=== PATIENT | male | born 1960 | race Caucasian/White ===

== ENCOUNTER 2020-05-25 22:58 | Inpatient (IN) | payer MEDICARE, OTHER ==
[2020-05-25] MEDS ORDERED: IPRATROPIUM-ALBUTEROL 3 ML NEB INHALATION STA (23:15)
[2020-05-25] MEDS ORDERED: DEXAMETHASONE SOD PHOSPHATE 10 MG/ML 1 ML VIAL IM STA (23:15)
[2020-05-25] MEDS ORDERED: diazePAM 5 MG TAB PO STA (23:15)
--- NOTE | 2020-05-25 23:17 | ED ---
SOB HPI - General Chief Complaint: Shortness of Breath Stated Complaint: SOB Time Seen by Provider: 05/25/20 23:00 Source: patient, EMS, RN notes reviewed, old records reviewed Mode of arrival: EMS Limitations: no limitations - History of Present Illness Initial Comments: This is a 59-year-old male to the ER for evaluation patient presents today for evaluation regards to shortness of breath patient has severe shortness of breath cough congestion known COPD, no drug abuse, patient comes from [place] where he is for crack cocaine use and alcohol abuse. Otherwise besides from COPD patient has no complaints no pain, states she's had 3 days of worsening shortness of breath. MD Complaint: shortness of breath, cough, "asthma attack", anxiety -: days(s) (3) Severity: moderate Severity scale (1-10): 6 Quality: dull Consistency: constant Improves With: nothing Worsens With: exertion Known History Of: COPD, asthma Context: recent URI, recent illness Associated Symptoms: cough, sputum production, palpitations Treatments Prior to Arrival: none - Related Data Allergies Allergy/AdvReac Type Severity Reaction Status Date / Time acetaminophen [From Tylenol] Allergy Nausea & Verified 05/25/20 23:21 Vomiting ibuprofen [From Advil] Allergy Itching Verified 05/25/20 23:21 Review of Systems ROS Statement: Those systems with pertinent positive or pertinent negative responses have been documented in the HPI. ROS Other: All systems not noted in ROS Statement are negative. Past Medical History Past Medical History: COPD History of Any Multi-Drug Resistant Organisms: None Reported Past Surgical History: Orthopedic Surgery Additional Past Surgical History / Comment(s): knee surgery-1976 Past Psychological History: Bipolar, Depression Smoking Status: Current every day smoker Past Alcohol Use History: Daily Past Drug Use History: Cocaine General Exam Limitations: no limitations General appearance: alert, anxious, in distress, cachectic Head exam: Present: atraumatic, normocephalic, normal inspection Eye exam: Present: normal appearance, PERRL, EOMI. Absent: scleral icterus, conjunctival injection, periorbital swelling ENT exam: Present: normal exam, mucous membranes moist Neck exam: Present: normal inspection. Absent: tenderness, meningismus, lymphadenopathy Respiratory exam: Present: normal lung sounds bilaterally. Absent: respiratory distress, wheezes, rales, rhonchi, stridor Cardiovascular Exam: Present: normal rhythm, tachycardia, normal heart sounds. Absent: systolic murmur, diastolic murmur, rubs, gallop, clicks GI/Abdominal exam: Present: soft, normal bowel sounds. Absent: distended, tenderness, guarding, rebound, rigid Extremities exam: Present: normal inspection, full ROM, normal capillary refill. Absent: tenderness, pedal edema, joint swelling, calf tenderness Back exam: Present: normal inspection Neurological exam: Present: alert, oriented X3, CN II-XII intact Psychiatric exam: Present: normal affect, normal mood Skin exam: Present: warm, dry, intact, normal color. Absent: rash Course Vital Signs 05/25/20 05/25/20 05/25/20 23:00 23:34 23:53 Temperature 97.3 F L Pulse Rate 101 H 96 96 Respiratory 20 Rate Blood Pressure 145/90 O2 Sat by Pulse 98 Oximetry 05/26/20 01:11 Temperature Pulse Rate 96 Respiratory 18 Rate Blood Pressure 117/71 O2 Sat by Pulse 100 Oximetry - Reevaluation(s) Reevaluation #1: 05/26/20 00:15 Medical record is reviewed Reevaluation #2: 05/26/20 01:18 Patient did provided significant distress for distress which improved with supplemental O2 and breathing treatments Reevaluation #3: 05/26/20 01:18 Patient informed results questions have been answered - Consultations Consultation #1: Spoke with sound who agree to admit patient Medical Decision Making - Lab Data Result diagrams: 05/25/20 23:03 05/25/20 23:03 Lab Results 05/25/20 05/25/20 05/25/20 Range/Units 23:03 23:03 23:03 WBC 7.1 (3.8-10.6) k/uL RBC 4.11 L (4.30-5.90) m/uL Hgb 13.5 (13.0-17.5) gm/dL Hct 40.1 (39.0-53.0) % MCV 97.4 (80.0-100.0) fL MCH 32.9 (25.0-35.0) pg MCHC 33.8 (31.0-37.0) g/dL RDW 13.8 (11.5-15.5) % Plt Count 165 (150-450) k/uL MPV 8.8 Neutrophils % 57 % Lymphocytes % 21 % Monocytes % 10 % Eosinophils % 8 % Basophils % 1 % Neutrophils # 4.0 (1.3-7.7) k/uL Lymphocytes # 1.5 (1.0-4.8) k/uL Monocytes # 0.7 (0-1.0) k/uL Eosinophils # 0.6 (0-0.7) k/uL Basophils # 0.1 (0-0.2) k/uL PT 10.4 (9.0-12.0) sec INR 1.0 (<1.2) APTT 22.2 (22.0-30.0) sec Sodium 136 L (137-145) mmol/L Potassium 5.9 H (3.5-5.1) mmol/L Chloride 102 (98-107) mmol/L Carbon Dioxide 31 H (22-30) mmol/L Anion Gap 3 mmol/L BUN 27 H (9-20) mg/dL Creatinine 0.79 (0.66-1.25) mg/dL Est GFR (CKD-EPI)AfAm >90 (>60 ml/min/1.73 sqM) Est GFR (CKD-EPI)NonAf >90 (>60 ml/min/1.73 sqM) Glucose 120 H (74-99) mg/dL Plasma Lactic Acid Julio (0.7-2.0) mmol/L Calcium 8.8 (8.4-10.2) mg/dL Magnesium 2.2 (1.6-2.3) mg/dL Total Bilirubin 0.6 (0.2-1.3) mg/dL AST 42 (17-59) U/L ALT 23 (4-49) U/L Alkaline Phosphatase 60 (38-126) U/L Lactate Dehydrogenase 778 H (313-618) U/L Troponin I (0.000-0.034) ng/mL C-Reactive Protein <5.0 (<10.0) mg/L Total Protein 6.8 (6.3-8.2) g/dL Albumin 3.6 (3.5-5.0) g/dL 05/25/20 05/25/20 Range/Units 23:03 23:03 WBC (3.8-10.6) k/uL RBC (4.30-5.90) m/uL Hgb (13.0-17.5) gm/dL Hct (39.0-53.0) % MCV (80.0-100.0) fL MCH (25.0-35.0) pg MCHC (31.0-37.0) g/dL RDW (11.5-15.5) % Plt Count (150-450) k/uL MPV Neutrophils % % Lymphocytes % % Monocytes % % Eosinophils % % Basophils % % Neutrophils # (1.3-7.7) k/uL Lymphocytes # (1.0-4.8) k/uL Monocytes # (0-1.0) k/uL Eosinophils # (0-0.7) k/uL Basophils # (0-0.2) k/uL PT (9.0-12.0) sec INR (<1.2) APTT (22.0-30.0) sec Sodium (137-145) mmol/L Potassium (3.5-5.1) mmol/L Chloride (98-107) mmol/L Carbon Dioxide (22-30) mmol/L Anion Gap mmol/L BUN (9-20) mg/dL Creatinine (0.66-1.25) mg/dL Est GFR (CKD-EPI)AfAm (>60 ml/min/1.73 sqM) Est GFR (CKD-EPI)NonAf (>60 ml/min/1.73 sqM) Glucose (74-99) mg/dL Plasma Lactic Acid Julio 0.9 (0.7-2.0) mmol/L Calcium (8.4-10.2) mg/dL Magnesium (1.6-2.3) mg/dL Total Bilirubin (0.2-1.3) mg/dL AST (17-59) U/L ALT (4-49) U/L Alkaline Phosphatase (38-126) U/L Lactate Dehydrogenase (313-618) U/L Troponin I 0.013 (0.000-0.034) ng/mL C-Reactive Protein (<10.0) mg/L Total Protein (6.3-8.2) g/dL Albumin (3.5-5.0) g/dL - EKG Data -: EKG Interpreted by Me (EKG shows NSR 98 FL 140 QRS 90 QTc 464) Critical Care Time Critical Care Time: Yes Total Critical Care Time: 31 Disposition Clinical Impression: Acute exacerbation of chronic obstructive pulmonary disease, Hypoxia Disposition: ADMITTED IP TO THIS HOSP Condition: Fair Is patient prescribed a controlled substance at d/c from ED?: No Referrals: None,Stated [Primary Care Provider] - 1-2 days
[2020-05-25] MEDS: HYDROcodone/APAP 5-325MG 1 EACH TAB PO STA ×2 (23:28→23:31)
[2020-05-25] MEDS ORDERED: SODIUM CHLORIDE 0.9% 1,000 ML IV STA ×2 (23:35)
[2020-05-25] MEDS ORDERED: SODIUM CHLORIDE 0.9% 500 ML 500 ML IV STA (23:35)
[2020-05-25] MEDS ORDERED: LORazepam 2 MG/ML INJ IV STA (23:35)
[2020-05-26] LABS: Basophils # (A) 0.1 k/uL (0-0.2); Basophils % (A) 1 %; Eosinophils # (A) 0.6 k/uL (0-0.7); Eosinophils % (A) 8 %; HCT 40.1 % (39.0-53.0); HGB 13.5 gm/dL (13.0-17.5); Lymphocytes # (A) 1.5 k/uL (1.0-4.8); Lymphocytes % (A) 21 %; MCH 32.9 pg (25.0-35.0); MCHC 33.8 g/dL (31.0-37.0); MCV 97.4 fL (80.0-100.0); Mean Platelet Volume 8.8; Monocytes # (A) 0.7 k/uL (0-1.0); Monocytes % (A) 10 %; Neutrophils % (A) 57 %; Platelet Count 165 k/uL (150-450); RBC 4.11 m/uL (4.30-5.90); RDW 13.8 % (11.5-15.5); WBC 7.1 k/uL (3.8-10.6)
--- NOTE | 2020-05-26 00:09 | XR ---
EXAM: XR Chest, 1 View CLINICAL HISTORY: ITS.REASON XR Reason: cough TECHNIQUE: Frontal view of the chest. COMPARISON: No previous studies. FINDINGS: Lungs: Mild COPD. No consolidative changes. Pleural space: No pleural effusions. No pneumothorax. Heart: Cardiomediastinal silhouette unremarkable. Mediastinum: See above. Bones/joints: Ribs are grossly unremarkable. 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 IMPRESSION: 1. Mild COPD. 2. No consolidative change.
[2020-05-26 00:11] LABS: Partial Thromboplastin Time 22.2 sec (22.0-30.0); Prothrombin Time 10.4 sec (9.0-12.0)
[2020-05-26 00:35] LABS: ALT 23 U/L (4-49); African American GFR (CKD) >90 (>60 ml/min/1.73 sqM); Anion Gap 3 mmol/L; Blood Urea Nitrogen 27 mg/dL (9-20); Calcium 8.8 mg/dL (8.4-10.2); Carbon Dioxide 31 mmol/L (22-30); Chloride 102 mmol/L (98-107); Glucose 120 mg/dL (74-99); Non-African American GFR(CKD) >90 (>60 ml/min/1.73 sqM); Sodium 136 mmol/L (137-145)
[2020-05-26 00:38] LABS: AST 42 U/L (17-59); Albumin 3.6 g/dL (3.5-5.0); Alkaline Phosphatase 60 U/L (38-126); Magnesium 2.2 mg/dL (1.6-2.3); Potassium 5.9 mmol/L (3.5-5.1); Total Bilirubin 0.6 mg/dL (0.2-1.3); Total Protein 6.8 g/dL (6.3-8.2)
[2020-05-26 00:39] LABS: C Reactive Protein <5.0 mg/L (<10.0); LDH 778 U/L (313-618)
[2020-05-26] MEDS ORDERED: IPRATROPIUM-ALBUTEROL 3 ML NEB INHALATION PRN (01:15)
[2020-05-26] MEDS ORDERED: methylPREDNISolone SOD SUCCI 125 MG/2 ML VIAL IV STA (01:15)
[2020-05-26] MEDS ORDERED: LORazepam 2 MG/ML INJ IV PRN ×2 (01:18)
[2020-05-26] MEDS ORDERED: THIAMINE 100 MG/ML 2 ML VIAL IM ONE ×2 (01:30→03:00)
[2020-05-26] MEDS ORDERED: INSULIN REGULAR 100 UNIT/ML VIAL IV ONE (01:57)
[2020-05-26] MEDS ORDERED: DEXTROSE 50% SYRINGE 50 ML IVP STA (01:57)
[2020-05-26] MEDS: LORazepam 2 MG/ML INJ IV PRN ×2 (02:32→10:27)
[2020-05-26] MEDS: SODIUM CHLORIDE 0.9% 1,000 ML IV SCH ×2 (03:03→12:50)
--- NOTE | 2020-05-26 03:43 | P.HPIM ---
History of Present Illness H&P Date: 05/26/20 Chief Complaint: coughing , SOB 59 year old male with COPD, not on home oxygen patient is currently at [facility] for alcohol and cocain abuse. patient reports 3 days of productive cough yellowish sputum, and today progressed to severe SOB, he does not use home oxygen, but his inhalers failed to give him any relief. patient denies any new onset body aches , fever, loss of smell or taste sensation , diarrhea, chest pain , nausea or vomiting, abd pain or sick contact with known cases of covid 19. he denies any hemoptysis in the ED he was found to have SOB and wheezing, he improved slightly with breathing treatment, and oxygenation improved with supplemental oxygen CXR showed COPD changes, and blood work , showed no luekocytosis , CRP wnl, but elevated LDH Review of Systems Pertinent positives as noted in HPI. All other systems were reviewed and are negative Past Medical History Past Medical History: COPD History of Any Multi-Drug Resistant Organisms: None Reported Past Surgical History: Orthopedic Surgery Additional Past Surgical History / Comment(s): knee surgery-1976 Past Psychological History: Bipolar, Depression Smoking Status: Current every day smoker Past Alcohol Use History: Daily Past Drug Use History: Cocaine - Past Family History family Family Medical History: No Reported History Medications and Allergies Allergies Allergy/AdvReac Type Severity Reaction Status Date / Time acetaminophen [From Tylenol] Allergy Nausea & Verified 05/25/20 23:21 Vomiting ibuprofen [From Advil] Allergy Itching Verified 05/25/20 23:21 Physical Exam Vitals: Vital Signs Temp Pulse Resp BP Pulse Ox 05/26/20 01:11 96 18 117/71 100 05/25/20 23:53 96 05/25/20 23:34 96 05/25/20 23:00 97.3 F L 101 H 20 145/90 98 Intake and Output 05/25/20 05/25/20 05/26/20 14:59 22:59 06:59 Other: Weight 49.895 kg Constitutional: No acute distress, conversant, pleasant, looks older than stated age, disheveled Eyes: Anicteric sclerae, moist conjunctiva, Pupils equal round reactive to light ENMT: NC/AT Oropharynx clear, no erythema, or exudates Neck: Supple, FROM, no masses, or JVD No carotid bruits No thyromegaly Lungs: decrease breath sounds throughout , with diffuse rhonchi Clear to percussion Normal respiratory effort, no accessory muscle use Cardiovascular: Heart regular in rate and rhythm, No murmurs, gallops, or rubs No peripheral edema Abdominal: Soft Nontender, no guarding, rebound or rigidity Abdomen moving with respiration Normoactive bowel sounds No hepatomegaly, No splenomegaly No palpable mass umbilical hernia , soft non tender Skin: Normal temperature, tone, texture, turgor No induration No subcutaneous nodules there erythematic rash over bilateral dorsum of forearm, patient indicated chronic and he bruises easily No ulcers Extremities: No digital cyanosis No clubbing Pedal pulses intact and symmetrical Radial pulses intact and symmetrical No calf tenderness Psychiatric: Alert and oriented to person, place Appropriate affect fair judgement Neuro Muscles Strength 4/5 in all 4 extremities Sensation to light touch grossly present throughout Cranial nerves II-XII grossly intact No focal sensory deficits Lymphatics: no palpable cervical or supraclavicular , or inguinal lymph nodes Results CBC & Chem 7: 05/25/20 23:03 05/25/20 23:03 Labs: Abnormal Lab Results - Last 24 Hours (Table) 05/25/20 05/25/20 Range/Units 23:03 23:03 RBC 4.11 L (4.30-5.90) m/uL Sodium 136 L (137-145) mmol/L Potassium 5.9 H (3.5-5.1) mmol/L Carbon Dioxide 31 H (22-30) mmol/L BUN 27 H (9-20) mg/dL Glucose 120 H (74-99) mg/dL Lactate Dehydrogenase 778 H (313-618) U/L Assessment and Plan Assessment: acute hypoxic respiratory failure acute COPD exacerbation hyperkalemia elevated LDH polysubstance abuse plan supplemental oxygen as needed breathing treatment around the clock and as needed systemic steroids Azithromycin for anti inflammatory effect mucinex for congestion insulin and D50 for hyperkalemia , close monitor of K Q4Hr patient is determined to get help with his addiction , currently at [facility] , admits to smoking cocain and alcohol abuse CODE STATUS:full code DVT prophylaxis: lovenox sc Discussed with: Patient, ER, RN Anticipated length of stay > than [address]: back to [facility] A total of 55 minutes was spent on the care of this complex patient more than 50% of the time was spent in counseling and care coordination.
[2020-05-26] MEDS: methylPREDNISolone SOD SUCCI 125 MG/2 ML VIAL IV SCH ×4 (05:35→23:19)
[2020-05-26 07:05] LABS: HCT 37.8 % (39.0-53.0); HGB 12.5 gm/dL (13.0-17.5); MCHC 33.2 g/dL (31.0-37.0); MCV 99.4 fL (80.0-100.0); Mean Platelet Volume 8.4; Platelet Count 136 k/uL (150-450); RDW 13.9 % (11.5-15.5); WBC 5.8 k/uL (3.8-10.6)
[2020-05-26] MEDS: ALBUTEROL NEBULIZED 2.5 MG/3 ML INHALATION SCH ×4 (08:03→20:16)
[2020-05-26] MEDS: guaiFENesin-DM 600/30MG 1 EACH TAB.ER.12H PO SCH ×2 (08:13→20:47)
[2020-05-26] MEDS: ENOXAPARIN 40 MG/0.4 ML SYRINGE SQ SCH (08:13)
[2020-05-26] MEDS: AZITHROMYCIN 500 MG TAB PO SCH (08:13)
[2020-05-26] MEDS: NICOTINE 21MG/24HR PATCH TRANSDERM SCH (08:14)
[2020-05-26 09:35] LABS: African American GFR (CKD) 119.7 (60.0-200.0); Anion Gap 7.1 mmol/L (4.00-12.00); BUN/Creat Ratio 32.86 Ratio (12.00-20.00); Calcium 8.3 mg/dL (8.7-10.3); Carbon Dioxide 25.9 mmol/L (21.6-31.8); Non-African American GFR(CKD) 103.3 (60.0-200.0)
[2020-05-26 11:42] VITALS: BMI 17.7
--- NOTE | 2020-05-26 13:26 | P.PN ---
Subjective Progress Note Date: 05/26/20 Patient was seen and evaluated by me today. Her shortness of breath is slightly better compared to yesterday. He is still having significant rhonchi. No acute events overnight reported to me by nursing staff. Objective - Vital Signs Vital signs: Vital Signs Temp 98.6 F 05/26/20 08:00 Pulse 92 05/26/20 11:31 Resp 20 05/26/20 11:00 BP 142/66 05/26/20 08:00 Pulse Ox 98 05/26/20 08:00 Intake & Output 05/25/20 05/26/20 05/26/20 18:59 06:59 18:59 Intake Total 840 Balance 840 Weight 49.895 kg 49.895 kg Intake: Intake, IV Titration 520 Amount Sodium Chloride 0.9% 1, 520 000 ml @ 130 mls/hr IV . Q7H42M STA Rx#:[id number] Oral 320 Other: # Voids 1 - Exam General: The patient is awake and alert, in no distress Eye: there is normal conjunctiva bilaterally. Neck: The neck is supple, there is no JVD. Cardiovascular: Normal S1-S2, no S3-S4, no murmurs. Respiratory: Lungs with diffuse rhonchi and end-expiratory wheezing Gastrointestinal: Abdomen is soft, nontender Musculoskeletal: There is no pedal edema. Neurological:. Speech is normal. Skin: Skin is warm and dry - Labs CBC & Chem 7: 05/26/20 06:06 05/26/20 06:06 Labs: Abnormal Lab Results - Last 24 Hours (Table) 05/25/20 05/25/20 05/26/20 Range/Units 23:03 23:03 06:06 RBC 4.11 L 3.80 L (4.30-5.90) m/uL Hgb 12.5 L (13.0-17.5) gm/dL Hct 37.8 L (39.0-53.0) % Plt Count 136 L (150-450) k/uL Sodium 136 L (137-145) mmol/L Potassium 5.9 H (3.5-5.1) mmol/L Carbon Dioxide 31 H (22-30) mmol/L BUN 27 H (9-20) mg/dL BUN/Creatinine Ratio (12.00-20.00) Ratio Glucose 120 H (74-99) mg/dL Calcium (8.7-10.3) mg/dL Lactate Dehydrogenase 778 H (313-618) U/L 05/26/20 Range/Units 06:06 RBC (4.30-5.90) m/uL Hgb (13.0-17.5) gm/dL Hct (39.0-53.0) % Plt Count (150-450) k/uL Sodium (137-145) mmol/L Potassium (3.5-5.1) mmol/L Carbon Dioxide (22-30) mmol/L BUN (9-20) mg/dL BUN/Creatinine Ratio 32.86 H (12.00-20.00) Ratio Glucose 159 H (74-99) mg/dL Calcium 8.3 L (8.7-10.3) mg/dL Lactate Dehydrogenase (313-618) U/L Assessment and Plan Assessment: This is a 59-year-old male with past medical history noted below significant for underlying COPD not on home oxygen who presented from [facility] with worsening shortness of breath and cough. Patient was evaluated in the ER and admitted to the hospital for further management of his medical problems noted below. acute hypoxic respiratory failure acute COPD exacerbation hyperkalemia elevated LDH polysubstance abuse plan supplemental oxygen as needed. Wean off O2 as tolerated for O2 sats greater than 90% breathing treatment around the clock and as needed systemic steroids currently with IV Solu-Medrol Azithromycin for anti inflammatory effect mucinex for congestion Hyperkalemia treated medically now back to normal patient is determined to get help with his addiction , currently at [facility] for rehab for cocaine and alcohol CODE STATUS:full code DVT prophylaxis: lovenox sc
[2020-05-26] MEDS: IPRATROPIUM-ALBUTEROL 3 ML NEB INHALATION SCH ×2 (16:22→20:15)
[2020-05-26] MEDS: THIAMINE 100 MG TAB PO SCH (17:51)
[2020-05-26] MEDS: SYMBICORT 160-4.5 MCG INHALER INHALATION SCH (20:16)
[2020-05-26] MEDS: traZODone HCL 50 MG TAB PO SCH (20:47)
[2020-05-26] MEDS: DIVALPROEX ER 500 MG TAB.ER.24H PO SCH (20:47)
[2020-05-26] MEDS: QUEtiapine 200 MG TAB PO SCH (20:47)
[2020-05-26] MEDS: haloperidoL 5 MG TAB PO SCH (20:47)
[2020-05-26] MEDS: clonazePAM 1 MG TAB PO SCH (20:48)
[2020-05-26] MEDS ORDERED: guaiFENesin 600 MG TABLET.ER PO SCH (21:00)
[2020-05-27] MEDS: methylPREDNISolone SOD SUCCI 125 MG/2 ML VIAL IV SCH ×2 (05:42→12:17)
[2020-05-27] MEDS ORDERED: DIVALPROEX ER 500 MG TAB.ER.24H PO SCH (06:15)
[2020-05-27] MEDS: SYMBICORT 160-4.5 MCG INHALER INHALATION SCH ×2 (08:37→20:06)
[2020-05-27] MEDS: IPRATROPIUM-ALBUTEROL 3 ML NEB INHALATION SCH ×4 (08:37→20:06)
[2020-05-27] MEDS: NICOTINE 21MG/24HR PATCH TRANSDERM SCH (08:50)
[2020-05-27] MEDS: DIVALPROEX ER 500 MG TAB.ER.24H PO SCH ×2 (08:52→20:59)
[2020-05-27] MEDS: THIAMINE 100 MG TAB PO SCH ×2 (08:52→17:20)
[2020-05-27] MEDS: AZITHROMYCIN 500 MG TAB PO SCH (08:53)
[2020-05-27] MEDS: guaiFENesin-DM 600/30MG 1 EACH TAB.ER.12H PO SCH ×2 (08:53→20:59)
[2020-05-27] MEDS: ENOXAPARIN 40 MG/0.4 ML SYRINGE SQ SCH (08:53)
[2020-05-27 09:30] LABS: African American GFR (CKD) >90 (>60 ml/min/1.73 sqM); Anion Gap 4 mmol/L; Blood Urea Nitrogen 24 mg/dL (9-20); Carbon Dioxide 30 mmol/L (22-30); Chloride 104 mmol/L (98-107); Glucose 164 mg/dL (74-99); Non-African American GFR(CKD) >90 (>60 ml/min/1.73 sqM); Potassium 5.1 mmol/L (3.5-5.1); Sodium 138 mmol/L (137-145)
[2020-05-27] MEDS: ALBUTEROL NEBULIZED 2.5 MG/3 ML INHALATION SCH ×3 (11:58→20:06)
--- NOTE | 2020-05-27 12:46 | P.PN ---
Subjective Progress Note Date: 05/27/20 Patient is still having diffuse wheezing all over the chest. This shortness of breath is improving. No acute events overnight reported by nursing staff. Objective - Vital Signs Vital signs: Vital Signs Temp 97.4 F L 05/27/20 07:36 Pulse 100 05/27/20 12:07 Resp 19 05/27/20 08:58 BP 138/72 05/27/20 07:36 Pulse Ox 95 05/27/20 07:36 Intake & Output 05/26/20 05/27/20 05/27/20 18:59 06:59 18:59 Weight 49.895 kg Other: # Voids 3 2 # Bowel Movements 1 - Exam General: The patient is awake and alert, in no distress Eye: there is normal conjunctiva bilaterally. Neck: The neck is supple, there is no JVD. Cardiovascular: Normal S1-S2, no S3-S4, no murmurs. Respiratory: Lungs with diffuse rhonchi and end-expiratory wheezing Gastrointestinal: Abdomen is soft, nontender Musculoskeletal: There is no pedal edema. Neurological:. Speech is normal. Skin: Skin is warm and dry - Labs CBC & Chem 7: 05/26/20 06:06 05/27/20 08:44 Labs: Abnormal Lab Results - Last 24 Hours (Table) 05/27/20 Range/Units 08:44 BUN 24 H (9-20) mg/dL Glucose 164 H (74-99) mg/dL Assessment and Plan Assessment: This is a 59-year-old male with past medical history noted below significant for underlying COPD not on home oxygen who presented from [facility] with worsening shortness of breath and cough. Patient was evaluated in the ER and admitted to the hospital for further management of his medical problems noted below. acute hypoxic respiratory failure acute COPD exacerbation hyperkalemia elevated LDH polysubstance abuse plan supplemental oxygen as needed. Wean off O2 as tolerated for O2 sats greater than 90% breathing treatment around the clock and as needed systemic steroids currently with IV Solu-Medrol Azithromycin for anti inflammatory effect mucinex for congestion Hyperkalemia treated medically now back to normal patient is determined to get help with his addiction , currently at [facility] for rehab for cocaine and alcohol CODE STATUS:full code DVT prophylaxis: lovenox sc discharge back to [facility] tomorrow
[2020-05-27] MEDS ORDERED: MAGNESIUM HYDROXIDE 2,400 MG/10 ML CUP PO PRN (15:21)
[2020-05-27] MEDS: haloperidoL 5 MG TAB PO SCH (20:58)
[2020-05-27] MEDS: clonazePAM 1 MG TAB PO SCH (20:59)
[2020-05-27] MEDS: methylPREDNISolone SOD SUCCI 40 MG/ML 1 ML VIAL IV SCH (20:59)
[2020-05-27] MEDS: traZODone HCL 50 MG TAB PO SCH (20:59)
[2020-05-27] MEDS: QUEtiapine 200 MG TAB PO SCH (20:59)
[2020-05-28 06:36] LABS: Basophils % (A) 0 %; Eosinophils % (A) 0 %; HGB 11.9 gm/dL (13.0-17.5); Lymphocytes % (A) 7 %; MCH 31.9 pg (25.0-35.0); MCHC 32.2 g/dL (31.0-37.0); MCV 98.9 fL (80.0-100.0); Mean Platelet Volume 7.8; Monocytes # (A) 1.1 k/uL (0-1.0); Monocytes % (A) 8 %; Neutrophils # (A) 12.5 k/uL (1.3-7.7); Neutrophils % (A) 85 %; Platelet Count 204 k/uL (150-450); RBC 3.74 m/uL (4.30-5.90); RDW 13.9 % (11.5-15.5); WBC 14.8 k/uL (3.8-10.6)
[2020-05-28] MEDS: THIAMINE 100 MG TAB PO SCH (08:00)
[2020-05-28] MEDS: DIVALPROEX ER 500 MG TAB.ER.24H PO SCH (08:02)
[2020-05-28] MEDS: AZITHROMYCIN 500 MG TAB PO SCH (08:03)
[2020-05-28] MEDS: methylPREDNISolone SOD SUCCI 40 MG/ML 1 ML VIAL IV SCH (08:03)
[2020-05-28] MEDS: guaiFENesin-DM 600/30MG 1 EACH TAB.ER.12H PO SCH (08:04)
[2020-05-28] MEDS: ENOXAPARIN 40 MG/0.4 ML SYRINGE SQ SCH (08:04)
[2020-05-28] MEDS: NICOTINE 21MG/24HR PATCH TRANSDERM SCH (08:09)
[2020-05-28 08:22] VITALS: BP 150/75; RESP 17; TEMP 97.5
[2020-05-28] MEDS: IPRATROPIUM-ALBUTEROL 3 ML NEB INHALATION SCH ×2 (08:43→11:52)
[2020-05-28] MEDS: SYMBICORT 160-4.5 MCG INHALER INHALATION SCH (08:44)
[2020-05-28] MEDS: ALBUTEROL NEBULIZED 2.5 MG/3 ML INHALATION SCH (08:54)
--- NOTE | 2020-05-28 09:57 | P.DS ---
Providers Date of admission: 05/26/20 01:15 Expected date of discharge: 05/28/20 Attending physician: Rashad Mckeon MD Primary care physician: Stated None Hospital Course: This is a 59-year-old male with past medical history noted below significant for underlying COPD not on home oxygen who presented from [place] [facility] with worsening shortness of breath and cough. Patient was evaluated in the ER and admitted to the hospital for further management of his medical problems noted below. acute hypoxic respiratory failure acute COPD exacerbation hyperkalemia elevated LDH polysubstance abuse Patient was treated during this hospitalization with bronchodilators and IV Solu-Medrol. His overall condition improved significantly. He finished 3 days course of azithromycin during this hospital stay. O2 sat on room air are 95% on the day of discharge. Patient will finish 5 days course of prednisone 40 mg daily. Continue bronchodilators inhalation. He was counseled extensively to stop smoking. He was prescribed a nicotine patch. He will be discharged back to [place] in a stable condition. For further details about this hospitalization please refer to the electronic chart. Patient Condition at Discharge: Fair Plan - Discharge Summary Discharge Rx Participant: No New Discharge Prescriptions: New RX: predniSONE [Deltasone] 40 mg PO DAILY 5 Days #10 tab RX: traZODone HCL [Desyrel] 50 mg PO HS tab RX: Nicotine 7Mg/24Hr Patch [Habitrol] 1 patch TRANSDERM DAILY #21 patch.td24 RX: clonazePAM [KlonoPIN] 2 mg PO HS tab Continue RX: haloperidoL [Haldol] 20 mg PO HS@2100 RX: Ipratropium [place] [Atrovent Hfa] 2 puff INHALATION RT-BID@ RX: Ipratropium/Albuterol Sulfate [Combivent Respimat Inhaler] 1 puff INHALATION RT-QID PRN PRN Reason: Shortness Of Breath RX: Divalproex ER [Depakote ER] 500 mg PO DAILY@0615 RX: Divalproex ER [Depakote ER] 1,000 mg PO HS@2100 RX: Fluticasone/Salmeterol [Advair Hfa 230-21 Mcg Inhaler] 2 puff INHALATION RT-BID@614,2099 Discontinued QUEtiapine [SEROquel] 600 mg PO HS@2100 Magnesium Hydroxide [Milk of Magnesia] 2,400 mg PO BID Mag Hydrox/Al Hydrox/Simeth [Maalox] 30 ml PO Q4H PRN PRN Reason: Indigestion RX: traZODone HCL 50 - 150 mg PO HS Calcium/Magnesium 1 tab PO TID Chlorpheniramine Maleate [Chlor-Trimeton] 4 mg PO Q4H PRN PRN Reason: Allergy Symptoms Ibuprofen [Motrin] 600 mg PO Q6H PRN PRN Reason: Pain Acetaminophen [Tylenol] 650 mg PO Q4H PRN PRN Reason: Fever And/ Or Pain Tigan 200mg 200 mg IM Q6H PRN PRN Reason: Nausea Zofran 2mg/Ml 4 mg IM Q6H PRN PRN Reason: Nausea And Vomiting Trimethobenzamide HCl [Tigan] 300 mg PO Q6H PRN PRN Reason: Nausea And Vomiting ondansetron HCL [Zofran] 8 mg PO Q6H PRN PRN Reason: Nausea And Vomiting RX: Trihexyphenidyl HCl 2.5 mg PO BID@614,2099 Discharge Medication List RX: Divalproex ER [Depakote ER] 1,000 mg PO HS@209905/26/20 [History] RX: Divalproex ER [Depakote ER] 500 mg PO DAILY@61405/26/20 [History] RX: Fluticasone/Salmeterol [Advair Hfa 230-21 Mcg Inhaler] 2 puff INHALATION RT- BID@614,209905/26/20 [History] RX: Ipratropium [place] [Atrovent Hfa] 2 puff INHALATION RT-BID@614,209905/26/20 [History] RX: Ipratropium/Albuterol Sulfate [Combivent Respimat Inhaler] 1 puff INHALATION RT-QID PRN 05/26/20 [History] RX: haloperidoL [Haldol] 20 mg PO HS@209905/26/20 [History] RX: Nicotine 7Mg/24Hr Patch [Habitrol] 1 patch TRANSDERM DAILY #21 patch.td24 05/28/20 [Rx] RX: clonazePAM [KlonoPIN] 2 mg PO HS tab 05/28/20 [Rx] RX: predniSONE [Deltasone] 40 mg PO DAILY 5 Days #10 tab 05/28/20 [Rx] RX: traZODone HCL [Desyrel] 50 mg PO HS tab 05/28/20 [Rx] Follow up Appointment(s)/Referral(s): None,Stated [Primary Care Provider] - 1-2 days Donavan Rojas [STAFF PHYSICIAN] - 2 Weeks Activity/Diet/Wound Care/Special Instructions: [place] to crop picker on discharge: #[phone]. Discharge Disposition: TRANSFER TO SNF/ECF
[2020-05-28 11:54] VITALS: PULSE 96
[2020-05-28 15:18] LABS: African American GFR (CKD) 119.7 (60.0-200.0); Anion Gap 6.4 mmol/L (4.00-12.00); BUN/Creat Ratio 44.29 Ratio (12.00-20.00); Carbon Dioxide 31.6 mmol/L (21.6-31.8); Non-African American GFR(CKD) 103.3 (60.0-200.0); Potassium 4.9 mmol/L (3.5-5.5)
== END 2020-05-28 14:06 | DRG 190 ==
LOC: EC 22:58 → 4SSUR 05-26 01:15
PROVIDERS: ADMIT Internal Medicine; ATTEND Internal Medicine
DX: J44.1 Chronic obstructive pulmonary disease with (acute) exacerbation (principal); J96.01 Acute respiratory failure with hypoxia; F41.9 Anxiety disorder, unspecified; F32.9 Major depressive disorder, single episode, unspecified; F17.210 Nicotine dependence, cigarettes, uncomplicated; E87.5 Hyperkalemia; F10.10 Alcohol abuse, uncomplicated; F14.10 Cocaine abuse, uncomplicated; Z88.6 Allergy status to analgesic agent; R74.02 Elevation of levels of lactic acid dehydrogenase [LDH]; Z79.899 Other long term (current) drug therapy
CPT/HCPCS: 36415; 71045; 80048; 80053; 83605; 83615; 83735; 84484; 85025; 85027; 85610; 85730; 86140; 93005; 94640; 96360; 96361; 96372; 99291

== ENCOUNTER 2020-06-05 13:06 | Emergency (ER) | payer MEDICARE, OTHER ==
[2020-06-05 13:13] VITALS: BP 142/68; PULSE 85; RESP 18; TEMP 98.4
--- NOTE | 2020-06-05 13:39 | ED ---
Fall HPI - General Chief Complaint: Fall Stated Complaint: Fall-R Hip Injury Time Seen by Provider: 06/05/20 13:16 Source: patient, RN notes reviewed Mode of arrival: wheelchair Limitations: no limitations, physical limitation - History of Present Illness Initial Comments: 39-year-old male presents emergency Department with chief complaint of fall. Patient states he is at [place] states he slipped on some liquid on the ground states he fell onto his right hip patient had no head injury no loss conscious or tingling the right hip pain patient's had prior right knee problems no prior right hip surgeries patient denies any paresthesias denies any back pain no bowel bladder incontinence or retention. Patient offers no other complaints - Related Data Home Medications Medication Instructions Recorded Confirmed Divalproex ER [Depakote ER] 1,000 mg PO HS@209905/26/20 06/05/20 Divalproex ER [Depakote ER] 500 mg PO DAILY@61405/26/20 06/05/20 Fluticasone/Salmeterol [Advair Hfa 2 puff INHALATION RT-BID@614,209905/26/20 06/05/20 230-21 Mcg Inhaler] Acetaminophen [Tylenol 8 Hour] 650 mg PO Q4H PRN 06/05/20 06/05/20 Albuterol Inhaler [Ventolin Hfa 1 puff INHALATION DIRECTED PRN 06/05/20 06/05/20 Inhaler] Chlorpheniramine Maleate 4 mg PO Q4H PRN 06/05/20 06/05/20 [Chlor-Trimeton] Ibuprofen [Motrin] 600 mg PO Q6H PRN 06/05/20 06/05/20 LORazepam [Ativan] 1 - 2 mg PO Q4H 06/05/20 06/05/20 Multivitamins, Thera [Multivitamin 1 tab PO DAILY@0600 06/05/20 06/05/20 (formulary)] Thiamine [Vitamin B-1] 100 mg PO DAILY@0600 06/05/20 06/05/20 Tigan 200mg Im 200 mg IM Q6H PRN 06/05/20 06/05/20 Tigan 300mg Supp 300 mg RECTAL Q6H PRN 06/05/20 06/05/20 Zofran 4mg Im 4 mg IM Q6H PRN 06/05/20 06/05/20 ondansetron HCL [Zofran] 8 mg PO Q6H PRN 06/05/20 06/05/20 traZODone HCL [Desyrel] 50 - 150 mg PO HS 06/05/20 06/05/20 Previous Rx's Medication Instructions Recorded Nicotine 7Mg/24Hr Patch [Habitrol] 1 patch TRANSDERM DAILY #21 05/28/20 patch.td24 predniSONE [Deltasone] 40 mg PO DAILY 5 Days #10 tab 05/28/20 Allergies Allergy/AdvReac Type Severity Reaction Status Date / Time acetaminophen [From Tylenol] AdvReac Nausea & Verified 06/05/20 13:24 Vomiting ibuprofen [From Advil] AdvReac Itching Verified 06/05/20 13:24 Review of Systems ROS Statement: Those systems with pertinent positive or pertinent negative responses have been documented in the HPI. ROS Other: All systems not noted in ROS Statement are negative. Past Medical History Past Medical History: COPD History of Any Multi-Drug Resistant Organisms: None Reported Past Surgical History: Orthopedic Surgery Additional Past Surgical History / Comment(s): knee surgery-1976 Past Psychological History: Bipolar, Depression Smoking Status: Current every day smoker Past Alcohol Use History: Daily Past Drug Use History: Cocaine - Past Family History family Family Medical History: No Reported History General Exam Limitations: no limitations General appearance: alert, in no apparent distress Head exam: Present: atraumatic, normocephalic, normal inspection Eye exam: Present: normal appearance, PERRL, EOMI. Absent: scleral icterus, conjunctival injection, periorbital swelling ENT exam: Present: normal exam, normal oropharynx, mucous membranes moist Neck exam: Present: normal inspection, full ROM. Absent: tenderness, meningismus, lymphadenopathy Respiratory exam: Present: normal lung sounds bilaterally. Absent: respiratory distress, wheezes, rales, rhonchi, stridor Cardiovascular Exam: Present: regular rate, normal rhythm, normal heart sounds. Absent: systolic murmur, diastolic murmur, rubs, gallop, clicks GI/Abdominal exam: Present: soft, normal bowel sounds. Absent: distended, tenderness, guarding, rebound, rigid Extremities exam: Present: other (Tenderness the right hip, no other supporting no shortening rotation, neurovascular intact patient does have full range of motion but reports moderate discomfort) Back exam: Present: full ROM. Absent: tenderness, muscle spasm, paraspinal tenderness, vertebral tenderness Neurological exam: Present: alert, oriented X3, CN II-XII intact Skin exam: Present: warm, dry, intact, normal color. Absent: rash Course Vital Signs 06/05/20 13:09 Temperature 98.4 F Pulse Rate 85 Respiratory 18 Rate Blood Pressure 142/68 O2 Sat by Pulse 96 Oximetry Medical Decision Making - Medical Decision Making X-rays were reviewed there is no acute fracture. Patient ambulated to the bathroom with no difficulty. Patient discharged in stable condition patient has right hip contusion. Disposition Clinical Impression: Fall, Contusion of right hip Disposition: HOME SELF-CARE Condition: Stable Instructions (If sedation given, give patient instructions): Hip Contusion (ED) Additional Instructions: Please return to the Emergency Department if symptoms worsen or any other concerns. Is patient prescribed a controlled substance at d/c from ED?: No Referrals: Nonstaff,Physician [Primary Care Provider] - 1-2 days Time of Disposition: 14:20
[2020-06-05] MEDS ORDERED: ACETAMINOPHEN TAB 325 MG TAB PO STA (13:48)
--- NOTE | 2020-06-05 14:12 | XR ---
EXAMINATION TYPE: AP view pelvis and 2 views right hip DATE OF EXAM: 06/05/2020 COMPARISON: NONE HISTORY: 59-year-old male with fall and pain FINDINGS: Osteopenia. Multiple vascular stents are present on the right. Atherosclerotic calcifications through out the left side of the pelvis. Mild degenerative change at both hips with marginal spurring. Multip le skin folds project over the intertrochanteric region. No acute fracture, subluxation, dislocation is seen. IMPRESSION: Mild bilateral hip OA. Osteopenia. No displaced fracture seen.
== END 2020-06-05 14:34 | disposition home or self-care (01) ==
LOC: EC 13:06
DX: S70.01XA Contusion of right hip, initial encounter (principal); J44.9 Chronic obstructive pulmonary disease, unspecified; F32.9 Major depressive disorder, single episode, unspecified; F17.200 Nicotine dependence, unspecified, uncomplicated; Z79.899 Other long term (current) drug therapy; Z79.51 Long term (current) use of inhaled steroids; Z88.6 Allergy status to analgesic agent; Z98.890 Other specified postprocedural states; W01.198A Fall on same level from slipping, tripping and stumbling with subsequent striking against other object, initial encounter
CPT/HCPCS: 73502; 99283

== ENCOUNTER 2021-07-10 03:36 | Observation (INO) | payer MEDICARE, OTHER ==
[2021-07-10] MEDS ORDERED: AZITHROMYCIN 500 MG in SODIUM CHLORIDE 0.9% 250 ML IVPB STA (03:40)
[2021-07-10] MEDS ORDERED: IPRATROPIUM-ALBUTEROL 3 ML NEB INHALATION STA (03:40)
[2021-07-10] MEDS ORDERED: SODIUM CHLORIDE 0.9% 1,000 ML IV STA (03:40)
[2021-07-10] MEDS ORDERED: methylPREDNISolone SOD SUCCI 125 MG/2 ML VIAL IV STA (03:40)
--- NOTE | 2021-07-10 03:41 | ED ---
SOB HPI - General Stated Complaint: Difficulty Breathing Time Seen by Provider: 07/10/21 03:40 Source: RN notes reviewed, old records reviewed Mode of arrival: EMS Limitations: no limitations - History of Present Illness Initial Comments: This is a 61-year-old male from [place]. Patient was at [place] and sent to us for evaluation regards to use cough congestion and difficulty breathing. She does have severe COPD with history of smoking. Does have history of recurrent hospitalizations for COPD, no current chest pain no fevers. MD Complaint: shortness of breath, cough -: hour(s) Severity: moderate Severity scale (1-10): 5 Quality: aching Consistency: intermittent Improves With: nothing Worsens With: exertion, movement Known History Of: COPD Context: recent URI, recent illness Associated Symptoms: cough Treatments Prior to Arrival: none - Related Data Home Medications Medication Instructions Recorded Confirmed Divalproex ER [Depakote ER] 1,000 mg PO HS@2100 05/26/20 06/05/20 Divalproex ER [Depakote ER] 500 mg PO DAILY@15 05/26/20 06/05/20 Fluticasone/Salmeterol [Advair Hfa 2 puff INHALATION RT-BID@15,2100 05/26/20 06/05/20 230-21 Mcg Inhaler] Acetaminophen [Tylenol 8 Hour] 650 mg PO Q4H PRN 06/05/20 06/05/20 Albuterol Inhaler [Ventolin Hfa 1 puff INHALATION DIRECTED PRN 06/05/20 06/05/20 Inhaler] Chlorpheniramine Maleate 4 mg PO Q4H PRN 06/05/20 06/05/20 [Chlor-Trimeton] Ibuprofen [Motrin] 600 mg PO Q6H PRN 06/05/20 06/05/20 LORazepam [Ativan] 1 - 2 mg PO Q4H 06/05/20 06/05/20 Multivitamins, Thera [Multivitamin 1 tab PO DAILY@0600 06/05/20 06/05/20 (formulary)] Thiamine [Vitamin B-1] 100 mg PO DAILY@0600 06/05/20 06/05/20 Tigan 200mg Im 200 mg IM Q6H PRN 06/05/20 06/05/20 Tigan 300mg Supp 300 mg RECTAL Q6H PRN 06/05/20 06/05/20 Zofran 4mg Im 4 mg IM Q6H PRN 06/05/20 06/05/20 ondansetron HCL [Zofran] 8 mg PO Q6H PRN 06/05/20 06/05/20 traZODone HCL [Desyrel] 50 - 150 mg PO HS 06/05/20 06/05/20 Previous Rx's Medication Instructions Recorded Nicotine 7Mg/24Hr Patch [Habitrol] 1 patch TRANSDERM DAILY #21 05/28/20 patch.td24 predniSONE [Deltasone] 40 mg PO DAILY 5 Days #10 tab 05/28/20 Allergies Allergy/AdvReac Type Severity Reaction Status Date / Time acetaminophen [From Tylenol] AdvReac Nausea & Verified 07/10/21 03:40 Vomiting ibuprofen [From Advil] AdvReac Itching Verified 07/10/21 03:40 Review of Systems ROS Statement: Those systems with pertinent positive or pertinent negative responses have been documented in the HPI. ROS Other: All systems not noted in ROS Statement are negative. Past Medical History Past Medical History: COPD History of Any Multi-Drug Resistant Organisms: None Reported Past Surgical History: Orthopedic Surgery Additional Past Surgical History / Comment(s): knee surgery-1976 Past Psychological History: Bipolar, Depression Smoking Status: Current every day smoker Past Alcohol Use History: Daily Past Drug Use History: Cocaine - Past Family History family Family Medical History: No Reported History General Exam General appearance: alert, in no apparent distress Head exam: Present: atraumatic, normocephalic, normal inspection Eye exam: Present: normal appearance, PERRL, EOMI. Absent: scleral icterus, conjunctival injection, periorbital swelling ENT exam: Present: normal exam, mucous membranes moist Neck exam: Present: normal inspection. Absent: tenderness, meningismus, lymphadenopathy Respiratory exam: Present: respiratory distress, wheezes, decreased breath sounds, prolonged expiratory. Absent: rales, rhonchi, stridor Cardiovascular Exam: Present: regular rate, normal rhythm, normal heart sounds. Absent: systolic murmur, diastolic murmur, rubs, gallop, clicks GI/Abdominal exam: Present: soft, normal bowel sounds. Absent: distended, tenderness, guarding, rebound, rigid Extremities exam: Present: normal inspection, full ROM, normal capillary refill. Absent: tenderness, pedal edema, joint swelling, calf tenderness Back exam: Present: normal inspection Neurological exam: Present: alert, oriented X3, CN II-XII intact Psychiatric exam: Present: normal affect, normal mood Skin exam: Present: warm, dry, intact, normal color. Absent: rash Course Vital Signs 07/10/21 07/10/21 07/10/21 03:41 04:06 04:12 Temperature 98.4 F Pulse Rate 77 77 88 Respiratory 16 Rate Blood Pressure 165/80 O2 Sat by Pulse 97 Oximetry 07/10/21 04:28 Temperature Pulse Rate 80 Respiratory 18 Rate Blood Pressure 165/78 O2 Sat by Pulse 94 L Oximetry - Reevaluation(s) Reevaluation #1: 07/10/21 04:43 Medical records reviewed Reevaluation #2: 07/10/21 04:43 Patient symptoms are improved as patient is able to rest currently but does have persistent cough here in the ER Reevaluation #3: 07/10/21 04:43 Patient is informed of results and questions answered - Consultations Consultation #1: Spoke with [facility] re admission and they aare agreeable Medical Decision Making - Medical Decision Making 61 male DF for evaluation of severe cough and congestion significant COPD exacerbation. Patient will be admitted for breathing treatments and monitoring. - Lab Data Result diagrams: 07/10/21 04:20 07/10/21 04:20 Lab Results 07/10/21 07/10/21 07/10/21 Range/Units 04:20 04:20 04:20 WBC 10.7 H (3.8-10.6) k/uL RBC 4.40 (4.30-5.90) m/uL Hgb 14.2 (13.0-17.5) gm/dL Hct 43.6 (39.0-53.0) % MCV 99.3 (80.0-100.0) fL MCH 32.4 (25.0-35.0) pg MCHC 32.6 (31.0-37.0) g/dL RDW 14.4 (11.5-15.5) % Plt Count 224 (150-450) k/uL MPV 7.9 Neutrophils % 60 % Lymphocytes % 18 % Monocytes % 8 % Eosinophils % 10 % Basophils % 1 % Neutrophils # 6.4 (1.3-7.7) k/uL Lymphocytes # 1.9 (1.0-4.8) k/uL Monocytes # 0.9 (0-1.0) k/uL Eosinophils # 1.1 H (0-0.7) k/uL Basophils # 0.1 (0-0.2) k/uL PT 10.4 (9.0-12.0) sec INR 1.0 (<1.2) APTT 25.5 (22.0-30.0) sec Sodium 138 (137-145) mmol/L Potassium 5.0 (3.5-5.1) mmol/L Chloride 102 (98-107) mmol/L Carbon Dioxide 29 (22-30) mmol/L Anion Gap 7 mmol/L BUN 30 H (9-20) mg/dL Creatinine 0.97 (0.66-1.25) mg/dL Est GFR (CKD-EPI)AfAm >90 (>60 ml/min/1.73 sqM) Est GFR (CKD-EPI)NonAf 85 (>60 ml/min/1.73 sqM) Glucose 71 L (74-99) mg/dL Plasma Lactic Acid Julio (0.7-2.0) mmol/L Calcium 9.0 (8.4-10.2) mg/dL Magnesium 2.6 H (1.6-2.3) mg/dL Total Bilirubin 0.4 (0.2-1.3) mg/dL AST 26 (17-59) U/L ALT 18 (4-49) U/L Alkaline Phosphatase 70 (38-126) U/L Total Protein 7.1 (6.3-8.2) g/dL Albumin 3.8 (3.5-5.0) g/dL 07/10/21 Range/Units 04:20 WBC (3.8-10.6) k/uL RBC (4.30-5.90) m/uL Hgb (13.0-17.5) gm/dL Hct (39.0-53.0) % MCV (80.0-100.0) fL MCH (25.0-35.0) pg MCHC (31.0-37.0) g/dL RDW (11.5-15.5) % Plt Count (150-450) k/uL MPV Neutrophils % % Lymphocytes % % Monocytes % % Eosinophils % % Basophils % % Neutrophils # (1.3-7.7) k/uL Lymphocytes # (1.0-4.8) k/uL Monocytes # (0-1.0) k/uL Eosinophils # (0-0.7) k/uL Basophils # (0-0.2) k/uL PT (9.0-12.0) sec INR (<1.2) APTT (22.0-30.0) sec Sodium (137-145) mmol/L Potassium (3.5-5.1) mmol/L Chloride (98-107) mmol/L Carbon Dioxide (22-30) mmol/L Anion Gap mmol/L BUN (9-20) mg/dL Creatinine (0.66-1.25) mg/dL Est GFR (CKD-EPI)AfAm (>60 ml/min/1.73 sqM) Est GFR (CKD-EPI)NonAf (>60 ml/min/1.73 sqM) Glucose (74-99) mg/dL Plasma Lactic Acid Julio 1.4 (0.7-2.0) mmol/L Calcium (8.4-10.2) mg/dL Magnesium (1.6-2.3) mg/dL Total Bilirubin (0.2-1.3) mg/dL AST (17-59) U/L ALT (4-49) U/L Alkaline Phosphatase (38-126) U/L Total Protein (6.3-8.2) g/dL Albumin (3.5-5.0) g/dL - EKG Data -: EKG Interpreted by Me (EKG shows sinus rhythm 75 rate CA 133 QRS 1O2 QTC 426) - Radiology Data Radiology results: report reviewed (Chest x-rays shows likely pneumonia lingula), image reviewed Disposition Clinical Impression: Acute exacerbation of chronic obstructive pulmonary disease, Community acquired pneumonia Disposition: ADMITTED IP TO THIS [facility] Condition: Good Is patient prescribed a controlled substance at d/c from ED?: No
[2021-07-10 03:47] VITALS: TEMP 98.4
[2021-07-10] MEDS ORDERED: SODIUM CHLORIDE 0.9% 1,000 ML IV SCH (04:45)
--- NOTE | 2021-07-10 04:55 | XR ---
EXAMINATION TYPE: XR chest 1V portable DATE OF EXAM: 07/10/2021 COMPARISON: 05/26/2020 HISTORY: Short of breath TECHNIQUE: Single view FINDINGS: Heart is normal. Lungs are clear of consolidation. There is some minimal interstitial densi ty above the right pulmonary hilum. The other lung hernandes are clear. There is no pleural effusion. Th ere are no hilar masses. Thoracic aorta is atheromatous. Bony thorax is intact. IMPRESSION: There is some new minimal interstitial density above the right pulmonary hilum compared t o the old exam. Normal heart.
[2021-07-10 04:56] LABS: Basophils # (A) 0.1 k/uL (0-0.2); Basophils % (A) 1 %; Eosinophils # (A) 1.1 k/uL (0-0.7); Eosinophils % (A) 10 %; HCT 43.6 % (39.0-53.0); HGB 14.2 gm/dL (13.0-17.5); Lymphocytes # (A) 1.9 k/uL (1.0-4.8); Lymphocytes % (A) 18 %; MCH 32.4 pg (25.0-35.0); MCHC 32.6 g/dL (31.0-37.0); MCV 99.3 fL (80.0-100.0); Mean Platelet Volume 7.9; Monocytes # (A) 0.9 k/uL (0-1.0); Monocytes % (A) 8 %; Neutrophils # (A) 6.4 k/uL (1.3-7.7); Neutrophils % (A) 60 %; Platelet Count 224 k/uL (150-450); RDW 14.4 % (11.5-15.5); WBC 10.7 k/uL (3.8-10.6)
[2021-07-10 05:03] LABS: Partial Thromboplastin Time 25.5 sec (22.0-30.0); Prothrombin Time 10.4 sec (9.0-12.0)
[2021-07-10 05:14] LABS: ALT 18 U/L (4-49); AST 26 U/L (17-59); African American GFR (CKD) >90 (>60 ml/min/1.73 sqM); Albumin 3.8 g/dL (3.5-5.0); Alkaline Phosphatase 70 U/L (38-126); Anion Gap 7 mmol/L; Blood Urea Nitrogen 30 mg/dL (9-20); Carbon Dioxide 29 mmol/L (22-30); Chloride 102 mmol/L (98-107); Glucose 71 mg/dL (74-99); Magnesium 2.6 mg/dL (1.6-2.3); Non-African American GFR(CKD) 85 (>60 ml/min/1.73 sqM); Sodium 138 mmol/L (137-145); Total Bilirubin 0.4 mg/dL (0.2-1.3); Total Protein 7.1 g/dL (6.3-8.2)
[2021-07-10] MEDS ORDERED: DEXTROSE 5%-0.45% NACL 1,000 ML IV SCH (05:30)
[2021-07-10] MEDS ORDERED: MORPHINE SULFATE 2 MG/ML SYRINGE IVP STA (06:07)
[2021-07-10] MEDS ORDERED: MORPHINE SULFATE 2 MG/ML SYRINGE IVP PRN (06:07)
[2021-07-10] MEDS: ALBUTEROL NEBULIZED 2.5 MG/3 ML INHALATION SCH ×3 (07:52→15:01)
[2021-07-10] MEDS ORDERED: MAG HYDROX/AL HYDROX/SIMETH 30 ML CUP PO PRN (09:12)
[2021-07-10] MEDS ORDERED: ACETAMINOPHEN TAB 325 MG TAB PO PRN (09:12)
[2021-07-10] MEDS ORDERED: methylPREDNISolone SOD SUCCI 125 MG/2 ML VIAL IV SCH (10:00)
[2021-07-10] MEDS: IPRATROPIUM 0.5 MG/2.5 ML NEBU INHALATION SCH ×2 (12:27→15:02)
--- NOTE | 2021-07-10 12:36 | P.HPIM ---
History of Present Illness H&P Date: 07/10/21 This is a pleasant 61 year old male who presents to the with complaints of difficulty breathing. Patient was admitted from [place] for cough congestion, and difficulty breathing. Patient has been at [facility] since last Tuesday for rehab. Patient has a past medical history of COPD with recurrent hospitalizations, is a current daily smoker, 1 pack per day for the last 45 years. Patient does state that he has a chronic cough has had this same cough for the last 10 years, it is congested he occasionally has sputum production currently none. Doesn't wear oxygen at home. No fever, chills, recent illness. Daily alcohol use states he drinks about 3 beers a day as well as cocaine abuse which she states he uses monthly, and occasional marijuana use. Patient has a past medical history significant for bipolar depression, and knee surgery in 1976. Doesn't know exactly the name of his PCP hasnt seen in about 6 months, and also states the office closed down during the pandemic. Chest x-ray on admission shows minimal interstitial density above the right pulmonary hilum compared to old exam. Normal heart. Labs on admission showed white count 10.7, hemoglobin 14.2, sodium 138, potassium 5.0, BUN 30, creatinine 0.97, glucose 71, magnesium 2.6, troponin negative, BNP 301, Covid not detected. EKG shows sinus rhythm with a heart rate of 75, QT [address] or T-wave abnormalities. Patient is afebrile, heart rate 74, blood pressure 108/39, 94% on room air. Patient admitted to the hospital for COPD exacerbation started on Ventolin, IV Solu Medrol, by mouth Zithromax. Patient also receiving hydration with D5 1/2 normal saline. REVIEW OF SYSTEMS: CONSTITUTIONAL: No fever, no malaise, no fatigue. HEENT: No recent visual problems or hearing problems. Denied any sore throat. CARDIOVASCULAR: No chest pain, orthopnea, PND, no palpitations, no syncope. PULMONARY: No shortness of breath, Reports congested cough, occasional sputum production, has had for the last 10 years. GASTROINTESTINAL: No diarrhea, no nausea, no vomiting, no abdominal pain. NEUROLOGICAL: No headaches, no weakness, no numbness. HEMATOLOGICAL: Denies any bleeding or petechiae. GENITOURINARY: Denies any burning micturition, frequency, or urgency. MUSCULOSKELETAL/RHEUMATOLOGICAL: Denies any joint pain, swelling, or any muscle pain. Reports occassional problems with left hip. ENDOCRINE: Denies any polyuria or polydipsia. The rest of the 14-point review of systems is negative. PHYSICAL EXAMINATION: GENERAL: The patient is alert and oriented x3, not in any acute distress. Well developed, well nourished. HEENT: Pupils are round and equally reacting to light. EOMI. No scleral icterus. No conjunctival pallor. Normocephalic, atraumatic. No pharyngeal erythema. No thyromegaly. Poor dentition. CARDIOVASCULAR: S1 and S2 present. No murmurs, rubs, or gallops. PULMONARY: Faint expiratory wheeze, coarse congested cough. ABDOMEN: Soft, nontender, nondistended, normoactive bowel sounds. No palpable organomegaly. MUSCULOSKELETAL: No joint swelling or deformity. EXTREMITIES: No cyanosis, clubbing, or pedal edema. NEUROLOGICAL: Gross neurological examination did not reveal any focal deficits. SKIN: No rashes. Assessment and plan Assessment Acute mild COPD exacerbation, COVID negative Leukocytosis secondary to above Hyperkalemia Bipolar/depression Chronic nicotine abuse Chronic daily alcohol abuse History of cocaine abuse currently at rehab GI Prophylaxis DVT Prophylaxis FULL CODE Plan Continue antibiotics, steroids Continue inhalers Resume home medications Return to [place] Past Medical History Past Medical History: COPD History of Any Multi-Drug Resistant Organisms: None Reported Past Surgical History: Orthopedic Surgery Additional Past Surgical History / Comment(s): knee surgery-1976 Past Psychological History: Bipolar, Depression Smoking Status: Current every day smoker Past Alcohol Use History: Daily Past Drug Use History: Cocaine - Past Family History family Family Medical History: No Reported History Medications and Allergies Home Medications Medication Instructions Recorded Confirmed Type Divalproex ER [Depakote ER] 1,000 mg PO HS@2100 05/26/20 07/10/21 History Divalproex ER [Depakote ER] 500 mg PO DAILY@0615 05/26/20 07/10/21 History Albuterol Inhaler [Ventolin Hfa 1 puff INHALATION RT-Q6H PRN 06/05/20 07/10/21 History Inhaler] Acetaminophen Tab [Tylenol] 650 mg PO TID PRN 07/10/21 07/10/21 History Calcium/Mag/Zinc/D3 1 tab PO TID 07/10/21 07/10/21 History Fluticasone/Salmeterol [Advair Hfa 2 puff INHALATION RT-BID@0615,1630 07/10/21 07/10/21 History 230-21 Mcg Inhaler] Gabapentin [Neurontin] 300 mg PO TID@0615,1630,2100 07/10/21 07/10/21 History Ibuprofen [Motrin Ib] 600 mg PO Q6H PRN 07/10/21 07/10/21 History Ipratropium [place] [Atrovent Hfa] 2 puff INHALATION RT-QID 07/10/21 07/10/21 History Loperamide HCl [Imodium A-D] 4 mg PO QID 07/10/21 07/10/21 History Mylanta 30 ml PO Q4H PRN 07/10/21 07/10/21 History QUEtiapine FUMARATE [SEROquel] 600 mg PO HS 07/10/21 07/10/21 History Trihexyphenidyl HCl 2.5 mg PO BID@0615,209907/10/21 07/10/21 History buPROPion SR [Wellbutrin SR] 150 mg PO DAILY@0615 07/10/21 07/10/21 History haloperidoL [Haldol] 20 mg PO HS 07/10/21 07/10/21 History ondansetron HCL [Zofran] 8 mg PO Q6H PRN 07/10/21 07/10/21 History Allergies Allergy/AdvReac Type Severity Reaction Status Date / Time acetaminophen [From Tylenol] AdvReac Nausea & Verified 07/10/21 07:45 Vomiting ibuprofen [From Advil] AdvReac Itching Verified 07/10/21 07:45 Physical Exam Vitals: Vital Signs Temp Pulse Resp BP Pulse Ox 07/10/21 07:59 99 18 07/10/21 07:52 99 18 07/10/21 07:31 84 20 106/70 97 07/10/21 06:05 74 18 108/39 94 L 07/10/21 04:28 80 18 165/78 94 L 07/10/21 04:12 88 07/10/21 04:06 77 07/10/21 03:41 98.4 F 77 16 165/80 97 Intake and Output 07/09/21 07/10/21 07/10/21 22:59 06:59 14:59 Other: Weight 52.617 kg Results CBC & Chem 7: 07/10/21 04:20 07/10/21 04:20 Labs: Abnormal Lab Results - Last 24 Hours (Table) 07/10/21 07/10/21 Range/Units 04:20 04:20 WBC 10.7 H (3.8-10.6) k/uL Eosinophils # 1.1 H (0-0.7) k/uL BUN 30 H (9-20) mg/dL Glucose 71 L (74-99) mg/dL Magnesium 2.6 H (1.6-2.3) mg/dL Assessment and Plan Time with Patient: Greater than 30
--- NOTE | 2021-07-10 12:51 | P.DS ---
Providers Date of admission: 07/10/21 04:42 Attending physician: Clara Gerardo Primary care physician: Stated None Hospital Course: Final diagnoses Acute mild COPD exacerbation, COVID negative Leukocytosis secondary to above Hyperkalemia Bipolar/depression Chronic nicotine abuse Chronic daily alcohol abuse History of cocaine abuse currently at rehab Discharge disposition Patient would like to be discharged back to [place], lungs are clear after updraft. The patient is maintaining adequate saturation on room air he is stable for return back to [place] on a short course of oral steroids and antibiotics for a mild COPD exacerbation. Covid is not detected. Hospital Course See H & P for additional information. Patients lungs are now clear, wheezing has resolved. Patient would like to be discharged and return to [place]. Patient was giving duoneb updrafts as well as started on IV steroids. Patient will be treated for COPD exacerbation which can be done in the outpatient setting with oral azithromycin and prednisone taper. Follow up with PCP after discharge. Return to if symptoms worsen or are not improving. Educated on the importance of smoking cessation. Current vital signs, temp 98.4, heart rate 90, blood pressure 117/56, 96% on room air. Please see medication reconciliation for a list of current medications. Thank you for allowing us to participate in the care of this patient. Patient Condition at Discharge: Good Plan - Discharge Summary New Discharge Prescriptions: New predniSONE 0 mg PO DIRECTED #19 tab Azithromycin [Zithromax] 500 mg PO DAILY 5 Days #5 tab Continue Divalproex ER [Depakote ER] 500 mg PO DAILY@0615 Divalproex ER [Depakote ER] 1,000 mg PO HS@2100 Albuterol Inhaler [Ventolin Hfa Inhaler] 1 puff INHALATION RT-Q6H PRN PRN Reason: Shortness Of Breath Calcium/Mag/Zinc/D3 1 tab PO TID Mylanta 30 ml PO Q4H PRN PRN Reason: acid control Acetaminophen Tab [Tylenol] 650 mg PO TID PRN PRN Reason: Pain buPROPion SR [Wellbutrin SR] 150 mg PO DAILY@0615 Gabapentin [Neurontin] 300 mg PO TID@0615,1630,2100 Ibuprofen [Motrin Ib] 600 mg PO Q6H PRN PRN Reason: Pain Ipratropium Circle [Atrovent Hfa] 2 puff INHALATION RT-QID QUEtiapine FUMARATE [SEROquel] 600 mg PO HS Fluticasone/Salmeterol [Advair Hfa 230-21 Mcg Inhaler] 2 puff INHALATION RT-BID@0615,163 Loperamide HCl [Imodium A-D] 4 mg PO QID Trihexyphenidyl HCl 2.5 mg PO BID@614,2099 ondansetron HCL [Zofran] 8 mg PO Q6H PRN PRN Reason: Nausea Discontinued haloperidoL [Haldol] 20 mg PO HS Discharge Medication List Divalproex ER [Depakote ER] 1,000 mg PO HS@209905/26/20 [History] Divalproex ER [Depakote ER] 500 mg PO DAILY@61405/26/20 [History] Albuterol Inhaler [Ventolin Hfa Inhaler] 1 puff INHALATION RT-Q6H PRN 06/05/20 [History] Acetaminophen Tab [Tylenol] 650 mg PO TID PRN 07/10/21 [History] Azithromycin [Zithromax] 500 mg PO DAILY 5 Days #5 tab 07/10/21 [Rx] Calcium/Mag/Zinc/D3 1 tab PO TID 07/10/21 [History] Fluticasone/Salmeterol [Advair Hfa 230-21 Mcg Inhaler] 2 puff INHALATION RT- BID@0615,1630 07/10/21 [History] Gabapentin [Neurontin] 300 mg PO TID@0615,163,209907/10/21 [History] Ibuprofen [Motrin Ib] 600 mg PO Q6H PRN 07/10/21 [History] Ipratropium Circle [Atrovent Hfa] 2 puff INHALATION RT-QID 07/10/21 [History] Loperamide HCl [Imodium A-D] 4 mg PO QID 07/10/21 [History] Mylanta 30 ml PO Q4H PRN 07/10/21 [History] QUEtiapine FUMARATE [SEROquel] 600 mg PO HS 07/10/21 [History] Trihexyphenidyl HCl 2.5 mg PO BID@614,209907/10/21 [History] buPROPion SR [Wellbutrin SR] 150 mg PO DAILY@61407/10/21 [History] ondansetron HCL [Zofran] 8 mg PO Q6H PRN 07/10/21 [History] predniSONE 0 mg PO DIRECTED #19 tab 07/10/21 [Rx] Follow up Appointment(s)/Referral(s): None,Stated [Primary Care Provider] - 1-2 days Patient Instructions/Handouts: How to Stop Smoking (DC) Activity/Diet/Wound Care/Special Instructions: Transfer back to [place] Needs help finding a PCP near where he lives Discharge/Stand Alone Forms: Personal [employer] Discharge Disposition: OTHER INSTITUTION NOT DEFINED
[2021-07-10 12:54] VITALS: BP 130/68; RESP 18
[2021-07-10 14:13] VITALS: PULSE 77
[2021-07-10] MEDS ORDERED: AZITHROMYCIN 500 MG TAB PO SCH (16:00)
[2021-07-10] MEDS ORDERED: SYMBICORT 160-4.5 MCG INHALER INHALATION SCH (16:30)
[2021-07-10] MEDS ORDERED: GABAPENTIN 300 MG CAP PO SCH (16:30)
[2021-07-10] MEDS ORDERED: DIVALPROEX ER 500 MG TAB.ER.24H PO SCH (21:00)
[2021-07-10] MEDS ORDERED: TRIHEXYPHENIDYL 2 MG TAB PO SCH (21:00)
[2021-07-10] MEDS ORDERED: haloperidoL 5 MG TAB PO SCH (21:00)
[2021-07-10] MEDS ORDERED: QUEtiapine 200 MG TAB PO SCH (21:00)
[2021-07-10] MEDS ORDERED: methylPREDNISolone SOD SUCCI 40 MG/ML 1 ML VIAL IV SCH (21:00)
[2021-07-11] MEDS ORDERED: DIVALPROEX ER 500 MG TAB.ER.24H PO SCH (06:15)
[2021-07-11] MEDS ORDERED: buPROPion SR 150 MG TABLET.ER PO SCH (06:15)
== END 2021-07-10 21:15 | disposition other institution (70) ==
LOC: EC 03:36 → 1SOBS 04:42 → 6NMEDSUR 05:17
PROVIDERS: ADMIT Hospitalist; ATTEND Hospitalist
DX: J44.1 Chronic obstructive pulmonary disease with (acute) exacerbation (principal); Z20.822 Contact with and (suspected) exposure to COVID-19; E87.5 Hyperkalemia; F17.210 Nicotine dependence, cigarettes, uncomplicated; F10.10 Alcohol abuse, uncomplicated; F14.10 Cocaine abuse, uncomplicated; F31.9 Bipolar disorder, unspecified; Z79.51 Long term (current) use of inhaled steroids; Z79.899 Other long term (current) drug therapy; Z71.6 Tobacco abuse counseling; Z88.6 Allergy status to analgesic agent
CPT/HCPCS: 99285; 96376; 96365; 96366; 96375; 36415; 94640; 93005; 83880; 80053; 83605; 83735; 84484; 85025; 85610; 85730; 87635; 71045; G0378; J2930; J0456; J2270